=== PATIENT | female | born 1985 | race Two or more races ===

== ENCOUNTER 2019-07-23 17:28 | Emergency (ER) | payer MEDICAID ==
[~2019-07-23] VITALS: Ht 162.6 cm; Wt 75.9 kg
[2019-07-23] MEDS ORDERED: PRENATAL VITAMINS PO (17:35)
[2019-07-23 18:22] LABS: BASOPHILS % (AUTO) 0.4 % (0.0-2.0); EOSINOPHILS % (AUTO) 0.2 % (1.0-6.0); HEMATOCRIT 39.7 % (36-46); HEMOGLOBIN 13.3 g/dL (12.0-16.0); LYMPHOCYTES # (AUTO) 2.5 K/uL (1.0-4.8); LYMPHOCYTES % (AUTO) 32.6 % (22.0-44.0); MEAN CORPUSCULAR HEMOGLOBIN 28.3 pg (26.0-34.0); MEAN CORPUSCULAR HGB CONC 33.5 G/dL (31.0-37.0); MEAN CORPUSCULAR VOLUME 84 fL (80-100); MONOCYTES # (AUTO) 0.5 K/uL (0.1-1.0); MONOCYTES % (AUTO) 6.8 % (2.0-9.0); NEUTROPHILS # (AUTO) 4.7 K/uL (1.8-7.7); PLATELET COUNT (AUTO) 204 K/uL (150-450); RED BLOOD CELL COUNT(AUTO) 4.71 MIL/uL (4.00-5.20); RED CELL DISTRIBUTION WIDTH 14.1 % (11.5-14.5)
[2019-07-23 20:42] VITALS: BP 140/80
== END 2019-07-23 20:50 | disposition home or self-care (01) ==
LOC: EMS 17:30
DX: O20.9 Hemorrhage in early pregnancy, unspecified (principal); N76.0 Acute vaginitis; Z3A.01 Less than 8 weeks gestation of pregnancy; Z87.891 Personal history of nicotine dependence
CPT/HCPCS: 76801; 76817; 86901; 87210; 87491; 87591